=== PATIENT | female | born 1995 | race Caucasian/White ===

== ENCOUNTER 2018-11-19 19:27 | Emergency (ER) | payer SELFPAY | END 2018-11-19 20:57 | disposition left against medical advice (07) | LOC: EDSEX → ER 19:27 | DX: S89.92XA Unspecified injury of left lower leg, initial encounter (principal); Z53.21 Procedure and treatment not carried out due to patient leaving prior to being seen by health care provider; X58.XXXA Exposure to other specified factors, initial encounter; Y93.89 Activity, other specified; Y99.8 Other external cause status; Y92.89 Other specified places as the place of occurrence of the external cause ==

== ENCOUNTER 2018-11-21 15:21 | Emergency (ER) | payer SELFPAY ==
[~2018-11-21] VITALS: Ht 175.3 cm; Wt 79.4 kg
[2018-11-21 16:03] VITALS: BP 131/74
[2018-11-21] MEDS ORDERED: IBUPROFEN 800 MG TAB PO ONE (16:15)
== END 2018-11-21 17:21 | disposition home or self-care (01) ==
LOC: ER 15:21 → EDSEX 15:21 → ER 17:21
DX: S80.02XA Contusion of left knee, initial encounter (principal); X58.XXXA Exposure to other specified factors, initial encounter; Y93.89 Activity, other specified; Y99.8 Other external cause status; Y92.89 Other specified places as the place of occurrence of the external cause
CPT/HCPCS: 29505; 73564